=== PATIENT | female | born 1990 | race Caucasian/White ===

== ENCOUNTER → 2018-03-23 08:50 | Outpatient (CLI) | payer OTHER, MEDICAID, SELFPAY ==
[2018-03-23 09:10] LABS: Add Manual Diff / Slide Review NO; Basophils Percent Auto 0.5 % (0-2); Eosinophils Percent Auto 2.9 % (2-4); Hematocrit 36.2 % (36-46); Hemoglobin 12.4 g/dL (12.0-16.0); Lymphocytes Percent Auto 38.4 % (25-40); Mean Corpuscular HGB Conc 34.3 % (30-36); Mean Corpuscular Hemoglobin 29.2 PG (26-34); Mean Corpuscular Volume 85.2 fL (80-100); Neutrophils Absolute Auto 3400 /uL (3000-5900); Neutrophils Percent Auto 52.2 % (50-75); Platelet Count 231 X10^3/uL (150-400); Red Blood Cell Count 4.25 X10^6/uL (4.0-5.2); Red Cell Distribution Width 13.2 % (11.6-14.8); White Blood Cell Count 6.6 X10^3/uL (4.5-11.0)
== END ==
PROVIDERS: PCP Family Medicine; Visit Provider Nurse Practitioner Family
DX: N93.9 Abnormal uterine and vaginal bleeding, unspecified (principal)
CPT/HCPCS: 36415; 85025

== ENCOUNTER → 2018-07-05 14:48 | Outpatient (CLI) | payer MEDICAID, SELFPAY ==
[2018-07-05 16:39] LABS: HCG Quantitative /Beta subunit 3158.9 mIU/mL
== END ==
PROVIDERS: PCP Family Medicine; Visit Provider Family Medicine
DX: Z32.00 Encounter for pregnancy test, result unknown (principal)
CPT/HCPCS: 36415; 84702

== ENCOUNTER → 2018-07-11 13:19 | Outpatient (CLI) | payer OTHER, MEDICAID, SELFPAY ==
--- NOTE | 2018-07-11 13:22 | DI.US.S_ITS ---
PROCEDURE: US OB <= 14 WEEKS FETUS INDICATIONS: DATES OUTSIDE/PRIOR DATING DATA: Last menstrual period (LMP): 05/27/18. LMP-based estimated date of delivery (MANI): 02/23/19. First dating scan (date and location): 07/11/18. Estimated date of delivery (MANI) from first dating scan: 03/05/19. TECHNIQUE: Real-time scanning was performed of the fetus and maternal pelvic organs, with image documentation. Endovaginal scanning was also performed to better visualize the fetus and maternal ovaries. COMPARISON: None. FINDINGS: Embryo: Gestational saclike fluid collection identified with mean sac diameter of 13 mm corresponding to 6 weeks 1 day. No yolk sac or pole. Measurement variability in dating: +/- 4 weeks by LMP, +/- 7 days by mean sac diameter (use before 6 weeks gestation if crown-rump length not able to be measured), +/- 5 days by crown-rump length (up to 8 weeks 6 days gestation), +/- 7 days by crown-rump length (up to 13 weeks 6 days gestation). Maternal organs: Ovaries within normal limits, with left corpus luteal cyst measuring 2.4 cm. Limited images through the kidneys demonstrate no hydronephrosis. IMPRESSION: 1. Gestational sac like intrauterine fluid collection with mean diameter of 13 mm corresponding to 6 weeks one day and no pole or yolk sac is seen. Early failure cannot be excluded and clinical correlation with serial beta-hCGs is recommended. If indicated short term follow up on ultrasound in 1 week could be performed to assess embryonic viability. Dictated by: Spencer Ramos [facility] Interpreted: Tram Escobedo MD on 07/11/2018 at 15:10 Approved by: Tram Escobedo MD, PhD on 07/11/2018 at 18:18
== END ==
PROVIDERS: PCP Family Medicine; Visit Provider Family Medicine
DX: Z34.91 Encounter for supervision of normal pregnancy, unspecified, first trimester (principal); Z3A.01 Less than 8 weeks gestation of pregnancy
CPT/HCPCS: 76801; 76817

== ENCOUNTER → 2018-08-09 14:40 | Outpatient (CLI) | payer OTHER, MEDICAID, SELFPAY ==
--- NOTE | 2018-08-09 14:42 | DI.US.S_ITS ---
PROCEDURE: US PELVIC COMPLETE INDICATIONS: F/U Termination TECHNIQUE: Real-time scanning was performed of the pelvic organs, with image documentation. Additional endovaginal scanning was necessary due to incomplete visualization of the adnexal and endometrial structures by transabdominal scanning. COMPARISON: [facility], , PELVIC COMPLETE, 11/28/2017, 11:47. FINDINGS: Transabdominal scanning: Limited scanning through the kidneys shows no hydronephrosis. No pathologic free abdominal or pelvic fluid. Endovaginal scanning: Uterus: Uterus is normal in size at 5.1 x 6.1 x 10.5 cm. The endometrium measures 7.0 mm in combined thickness. Ovaries: The right ovary measures 2.9 x 4.0 x 2.5 cm and the left measures 3.3 x 5.3 x 1.9 cm. IMPRESSION: No retained products of conception are identified. Normal appearing ovaries, no abnormal free fluid throughout the peritoneal space. Dictated by: Tejinder Fischer M.D. on 08/09/2018 at 17:17 Approved by: Tejinder Fischer M.D. on 08/09/2018 at 17:18
== END ==
PROVIDERS: PCP Family Medicine; Visit Provider Family Medicine
DX: Z39.2 Encounter for routine postpartum follow-up (principal)
CPT/HCPCS: 76830; 76856